=== PATIENT | female | born 1945 | race Caucasian/White ===

== ENCOUNTER 2018-01-29 18:14 | Observation (INO) | payer MEDICARE ==
[~2018-01-29] VITALS: Ht 162.6 cm; Wt 85.2 kg
[2018-01-29 18:57] LABS: CULTURE INDICATED? NO; MICROSCOPIC NOT IND
[2018-01-29] MEDS ORDERED: SODIUM CHLORIDE 0.9% 1,000 ML IV ONE ×2 (19:20→21:03)
[2018-01-29] MEDS ORDERED: ONDANSETRON ODT 4 MG ONE (19:26)
[2018-01-29 19:29] LABS: BASOPHILS # (AUTO) 0.03 x10^3/uL (0-0.1); BASOPHILS % (AUTO) 0 % (0-1); EOSINOPHILS # (AUTO) 0.12 x10^3/uL (0-0.4); EOSINOPHILS % (AUTO) 1 % (1-7); LYMPHOCYTES % (AUTO) 16 % (22-44); MD NO; MEAN CORPUSCULAR HEMOGLOBIN 30.1 pg (27.0-34.8); MEAN CORPUSCULAR HGB CONC 33.7 g/dL (32.4-35.8); MEAN CORPUSCULAR VOLUME 89.5 fL (80-100); MEAN PLATELET VOLUME 8.5 fL (7.4-10.4); MONOCYTES # (AUTO) 0.76 x10^3/uL (0.2-0.8); MONOCYTES % (AUTO) 7 % (2-9); NEUTROPHILS # (AUTO) 8.22 x10^3/uL (1.8-6.8); NEUTROPHILS % (AUTO) 76 % (42-75); PLATELET COUNT 230 x10^3/uL (130-400); RED BLOOD COUNT 4.96 x10^6/uL (3.82-5.3); RED CELL DISTRIBUTION WIDTH 14.2 % (9.6-15.2)
[2018-01-29] MEDS ORDERED: SODIUM CHLORIDE FLUSH 10ML SYR IVF ONE (19:30)
[2018-01-29] MEDS ORDERED: ONDANSETRON ODT 4 MG PO ONE (19:30)
[2018-01-29 19:37] LABS: ANION GAP 7 mmol/L (5-15); CALCIUM 9.4 mg/dL (8.5-10.1); CHLORIDE 107 mmol/L (98-107); CREATININE 0.96 mg/dL (0.55-1.02)
[2018-01-29 19:38] LABS: ALANINE AMINOTRANSFERASE 61 U/L (12-78); ALBUMIN 3.4 g/dL (3.4-5.0)
[2018-01-29 19:39] LABS: ALKALINE PHOSPHATASE 136 U/L (45-117); BILIRUBIN,TOTAL 0.4 mg/dL (0.2-1.0); TOTAL PROTEIN 7.8 g/dL (6.4-8.2)
[2018-01-29] MEDS ORDERED: OMNIPAQUE 350 MG/ML, 100ML BOTTLE ONE (20:19)
[2018-01-29] MEDS ORDERED: CEFOTETAN PMX 1GM/50ML 50 ML ONE (20:57)
[2018-01-29] MEDS ORDERED: BUPIVACAINE/PF-EPI 0.5% 1:200K ONE (21:00)
[2018-01-29] MEDS ORDERED: CEFOTETAN PMX 1GM/50ML 50 ML IV ONE (21:00)
[2018-01-29] MEDS ORDERED: CEFTRIAXONE 1,000 MG in SODIUM CHLORIDE 0.9% 50 ML IV ONE (21:07)
[2018-01-29] MEDS ORDERED: FENTANYL PF 100 MCG/2ML ONE ×3 (21:25→22:38)
[2018-01-29] MEDS ORDERED: MIDAZOLAM 1 MG/ML, 2ML ONE (21:25)
[2018-01-29] MEDS ORDERED: PROPOFOL 10 MG/ML, 20ML ONE (21:28)
[2018-01-29] MEDS ORDERED: ROCURONIUM 10MG/ML,5ML ONE (21:28)
[2018-01-29] MEDS ORDERED: SODIUM CHLORIDE FLUSH 10ML SYR IVF PRN (21:30)
[2018-01-29] MEDS ORDERED: GLYCOPYRROLATE 0.4 MG/2 ML, 2ML ONE ×2 (21:31→22:07)
[2018-01-29] MEDS ORDERED: NEOSTIGMINE 1 MG/ML, 10ML ONE (21:31)
[2018-01-29] MEDS ORDERED: ONDANSETRON 2MG/ML, 2ML ONE (21:42)
[2018-01-29] MEDS ORDERED: BUPIVACAINE/PF-EPI 0.5% 1:200K IM ONE (21:54)
[2018-01-29] MEDS ORDERED: DEXAMETHASONE 4 MG/ML, 1ML ONE ×2 (21:58)
[2018-01-29] MEDS ORDERED: ONDANSETRON ODT 8 MG PO PRN (22:00)
[2018-01-29] MEDS ORDERED: OXYcodone 5 MG/5 ML ORAL.SOL UDC PO PRN (22:00)
[2018-01-29] MEDS ORDERED: MORPHINE SULFATE 4 MG/ML, 1ML IVPush PRN (22:00)
[2018-01-29] MEDS ORDERED: ONDANSETRON 2MG/ML, 2ML IV PRN (22:00)
[2018-01-29] MEDS ORDERED: FENTANYL PF 100 MCG/2ML IV PRN (22:00)
[2018-01-29] MEDS ORDERED: MEPERIDINE/PF 25MG/0.5ML IVPush PRN (22:00)
[2018-01-29] MEDS ORDERED: LABETALOL 5MG/ML, 20ML IV PRN (22:00)
[2018-01-29] MEDS ORDERED: PROCHLORPERAZINE 5 MG/ML, 2ML IV PRN ×3 (22:00)
[2018-01-29] MEDS ORDERED: hydrALAzine 20 MG/ML, 1ML IV PRN (22:00)
[2018-01-29] MEDS ORDERED: HYDROmorphone 1 MG/ML, 1ML IV PRN (22:00)
[2018-01-29] MEDS ORDERED: OXYcodone 5 MG/5 ML ORAL.SOL UDC ONE (22:38)
[2018-01-29] MEDS ORDERED: hydrALAzine 20 MG/ML, 1ML ONE (22:43)
[2018-01-29] MEDS ORDERED: ACETAMINOPHEN 325 MG TABLET PO PRN (23:30)
[2018-01-29] MEDS ORDERED: IBUPROFEN 600 MG TABLET PO PRN (23:30)
[2018-01-29] MEDS ORDERED: OXYcodone/APAP 5/325MG TABLET PO PRN (23:30)
[2018-01-29] MEDS ORDERED: DIPHENHYDRAMINE 25 MG CAPSULE PO PRN (23:30)
[2018-01-29] MEDS ORDERED: OXYC-302 PO (23:41)
[2018-01-29] MEDS ORDERED: POLY17PO5 PO (23:42)
[2018-01-30 03:50] VITALS: BP 128/77
[2018-01-30 08:00] VITALS: BP 157/76
[2018-01-30 12:35] VITALS: BP 157/76
== END 2018-01-30 13:08 | disposition home or self-care (01) ==
LOC: ED 20:20 → INTOOBSV 21:03 → EDIP 21:03 → 4NOR 23:12 → DCLOUNGE 01-30 12:52
PROVIDERS: ADMIT Colon & Rectal Surgery; ATTEND Colon & Rectal Surgery
DX: K80.00 Calculus of gallbladder with acute cholecystitis without obstruction (principal); E78.5 Hyperlipidemia, unspecified; E78.00 Pure hypercholesterolemia, unspecified; E66.9 Obesity, unspecified; Z90.710 Acquired absence of both cervix and uterus
CPT/HCPCS: 36415; 47562; 74022; 74177; 80053; 81003; 83690; 85025; 88304; 96365; 99285; G0378; J0360; J1100; J2250; J2405; J2704; J2710; J3010; J7030; Q0162; Q9967; S0074

== ENCOUNTER → 2019-06-29 | Outpatient (CLI) | payer MEDICARE ==
[~2019-06-29] MED LIST: AMINOPHYLLINE 25 MG/ML, 10ML ONE; OXYC-302 PO; POLY17PO5 PO; REGADENOSON 0.4 MG/5 ML SYRINGE ONE
== END | disposition home or self-care (01) ==
LOC: CFH 08:01
PROVIDERS: ATTEND Internal Medicine
DX: I25.9 Chronic ischemic heart disease, unspecified (principal); E11.65 Type 2 diabetes mellitus with hyperglycemia; E78.5 Hyperlipidemia, unspecified; R07.9 Chest pain, unspecified
CPT/HCPCS: 78452; 93017; A9502; J0280; J2785

== ENCOUNTER 2019-07-19 09:19 | Outpatient (CLI) | payer MEDICARE ==
[~2019-07-19 09:19] MED LIST changes: -AMINOPHYLLINE 25 MG/ML, 10ML ONE; -REGADENOSON 0.4 MG/5 ML SYRINGE ONE
[2019-07-19] MEDS ORDERED: OMEP40CA42 PO (09:48)
[2019-07-19] MEDS ORDERED: ATOR20TA37 PO (09:48)
[2019-07-19] MEDS ORDERED: LISI-167 PO (09:48)
[2019-07-19] MEDS ORDERED: METF500T17 PO (09:48)
[2019-07-19] MEDS ORDERED: MULT-658 PO (09:56)
[2019-07-19] MEDS ORDERED: UBID1CAP43 PO (09:56)
== END 2019-07-19 23:59 | disposition home or self-care (01) ==
LOC: STAR 09:19
PROVIDERS: ATTEND Internal Medicine Cardiovascular Disease
DX: Z02.9 Encounter for administrative examinations, unspecified (principal)

== ENCOUNTER 2019-07-22 07:44 | Inpatient (IN) | payer MEDICARE ==
[2019-07-19 10:20] LABS: BASOPHILS # (AUTO) 0.03 x10^3/uL (0-0.1); BASOPHILS % (AUTO) 1 % (0-1); EOSINOPHILS # (AUTO) 0.17 x10^3/uL (0-0.4); EOSINOPHILS % (AUTO) 3 % (1-7); LYMPHOCYTES # (AUTO) 1.74 x10^3/uL (1-3.4); LYMPHOCYTES % (AUTO) 26 % (22-44); MD NO; MEAN CORPUSCULAR HEMOGLOBIN 29.6 pg (27.0-34.8); MEAN CORPUSCULAR HGB CONC 32.5 g/dL (32.4-35.8); MEAN CORPUSCULAR VOLUME 91.2 fL (80-100); MONOCYTES # (AUTO) 0.58 x10^3/uL (0.2-0.8); MONOCYTES % (AUTO) 9 % (2-9); NEUTROPHILS % (AUTO) 63 % (42-75); PLATELET COUNT 223 x10^3/uL (130-400); RED BLOOD COUNT 4.82 x10^6/uL (3.82-5.3); RED CELL DISTRIBUTION WIDTH 14.9 % (9.6-15.2)
[2019-07-19 10:30] LABS: ANION GAP 6 mmol/L (5-15); CALCIUM 9.1 mg/dL (8.5-10.1); CHLORIDE 108 mmol/L (98-107); CREATININE 0.98 mg/dL (0.55-1.02)
[~2019-07-22] VITALS: Ht 160 cm; Wt 82.9 kg
[~2019-07-22 07:44] MED LIST changes: +ATOR20TA37 PO; +LISI-167 PO; +METF500T17 PO; +MULT-658 PO; +OMEP40CA42 PO; +UBID1CAP43 PO
[2019-07-22] MEDS ORDERED: HEPARIN 1,000 UNITS/ML, 10ML ONE (08:58)
[2019-07-22] MEDS ORDERED: LIDOCAINE 2%, 20ML ONE (08:58)
[2019-07-22] MEDS ORDERED: BIVALIRUDIN 250 MG ONE ×2 (08:58→10:13)
[2019-07-22] MEDS ORDERED: MIDAZOLAM 1 MG/ML, 5ML ONE (08:58)
[2019-07-22] MEDS ORDERED: FENTANYL PF 100 MCG/2ML ONE ×2 (08:58→10:51)
[2019-07-22] MEDS ORDERED: TICAGRELOR 90 MG TABLET ONE (08:58)
[2019-07-22] MEDS ORDERED: VERAPAMIL 2.5 MG/ML, 2ML ONE (08:58)
[2019-07-22] MEDS ORDERED: ONDANSETRON 2MG/ML, 2ML ONE (10:51)
[2019-07-22] MEDS ORDERED: MIDAZOLAM 1 MG/ML, 2ML ONE (10:51)
[2019-07-22] MEDS ORDERED: PRASUGREL 10 MG TABLET ONE (11:28)
[2019-07-22] MEDS ORDERED: BIVALIRUDIN 250 MG in SODIUM CHLORIDE 0.9% 50 ML IV SCH (11:38)
[2019-07-22] MEDS ORDERED: ZOLPIDEM 5MG TABLET PO PRN (12:00)
[2019-07-22] MEDS ORDERED: ACETAMINOPHEN 325 MG TABLET PO PRN (12:00)
[2019-07-22] MEDS ORDERED: ONDANSETRON 2MG/ML, 2ML IVPush PRN (12:00)
[2019-07-22] MEDS: SODIUM CHLORIDE 0.9% 1,000 ML IV SCH ×2 (12:06→19:38)
[2019-07-22 14:30] VITALS: BP 126/80
[2019-07-22 20:00] VITALS: BP 131/73
[2019-07-22] MEDS: VITAMIN E 400 UNITS CAPSULE PO SCH (20:12)
[2019-07-22] MEDS: ATORVASTATIN 20 MG TABLET PO SCH (20:12)
[2019-07-23 01:31] VITALS: BP 137/70
[2019-07-23] MEDS: SODIUM CHLORIDE 0.9% 1,000 ML IV SCH ×2 (03:38→08:44)
[2019-07-23 05:15] LABS: ANION GAP 6 mmol/L (5-15); CALCIUM 8.8 mg/dL (8.5-10.1); CHLORIDE 110 mmol/L (98-107)
[2019-07-23 05:21] LABS: CREATININE 0.69 mg/dL (0.55-1.02)
[2019-07-23 08:43] VITALS: BP 119/72
[2019-07-23] MEDS: metFORMIN 500 MG TABLET PO SCH (08:44)
[2019-07-23] MEDS: OMEPRAZOLE 20 MG CAPSULE.DR PO SCH (08:46)
[2019-07-23] MEDS: LISINOPRIL 10 MG TABLET PO SCH (08:46)
[2019-07-23] MEDS: PRASUGREL 10 MG TABLET PO SCH (08:46)
[2019-07-23] MEDS: MULTIVITAMIN 1 TABLET PO SCH (08:46)
[2019-07-23] MEDS: VITAMIN E 400 UNITS CAPSULE PO SCH ×2 (08:47→21:28)
[2019-07-23] MEDS: ASPIRIN 81 MG TABLET EC PO SCH (09:49)
[2019-07-23] MEDS ORDERED: DIPHENHYDRAMINE 50 MG/ML, 1ML IVPush PRN (11:30)
[2019-07-23 13:45] VITALS: BP 116/75
[2019-07-23 17:54] VITALS: BP 108/68
[2019-07-23] MEDS: METOPROLOL TARTRATE 25 MG TAB PO SCH (17:55)
[2019-07-23 20:25] VITALS: BP 108/66
[2019-07-23] MEDS: ATORVASTATIN 20 MG TABLET PO SCH (21:28)
[2019-07-24 01:17] VITALS: BP 102/66
[2019-07-24] MEDS: METOPROLOL TARTRATE 25 MG TAB PO SCH (05:59)
[2019-07-24] MEDS: ASPIRIN 81 MG TABLET EC PO SCH (05:59)
[2019-07-24 08:18] VITALS: BP 114/65
[2019-07-24] MEDS: LISINOPRIL 10 MG TABLET PO SCH (08:20)
[2019-07-24] MEDS: PRASUGREL 10 MG TABLET PO SCH (08:21)
[2019-07-24] MEDS: OMEPRAZOLE 20 MG CAPSULE.DR PO SCH (08:21)
[2019-07-24] MEDS: metFORMIN 500 MG TABLET PO SCH (08:21)
[2019-07-24] MEDS: MULTIVITAMIN 1 TABLET PO SCH (08:21)
[2019-07-24] MEDS: VITAMIN E 400 UNITS CAPSULE PO SCH (08:22)
[2019-07-24] MEDS ORDERED: ATOR40TA PO (10:01)
[2019-07-24] MEDS ORDERED: PRAS10TA4 PO (10:01)
[2019-07-24] MEDS ORDERED: METO25TA2 PO (10:01)
[2019-07-24] MEDS ORDERED: ASPI81TA45 PO (10:01)
== END 2019-07-24 11:25 | disposition home or self-care (01) | DRG 246 ==
LOC: CACL 07:44 → OBSVTOIN 11:38 → 5SO 11:38 → CACL 12:42 → DCLOUNGE 07-24 11:15
PROVIDERS: ADMIT Internal Medicine Cardiovascular Disease; ATTEND Internal Medicine Cardiovascular Disease
PROC: 4A023N7 Measurement of Cardiac Sampling and Pressure, Left Heart, Percutaneous Approach (ICD-10-PCS; principal; 2019-07-22)
PROC: 027236Z Dilation of Coronary Artery, Three Arteries with Three Drug-eluting Intraluminal Devices, Percutaneous Approach (ICD-10-PCS; 2019-07-22)
PROC: B2151ZZ Fluoroscopy of Left Heart using Low Osmolar Contrast (ICD-10-PCS; 2019-07-22)
PROC: B2111ZZ Fluoroscopy of Multiple Coronary Arteries using Low Osmolar Contrast (ICD-10-PCS; 2019-07-22)
PROC: 02703ZZ Dilation of Coronary Artery, One Artery, Percutaneous Approach (ICD-10-PCS; 2019-07-22)
DX: I25.10 Atherosclerotic heart disease of native coronary artery without angina pectoris (principal); I50.33 Acute on chronic diastolic (congestive) heart failure; E78.5 Hyperlipidemia, unspecified; I27.20 Pulmonary hypertension, unspecified; K21.9 Gastro-esophageal reflux disease without esophagitis; I45.9 Conduction disorder, unspecified; E11.9 Type 2 diabetes mellitus without complications; I11.9 Hypertensive heart disease without heart failure; Z87.891 Personal history of nicotine dependence; Z82.49 Family history of ischemic heart disease and other diseases of the circulatory system; I11.0 Hypertensive heart disease with heart failure
CPT/HCPCS: 36415; 80048; 84484; 85025; 92920; 93005; 93306; 93458; 99156; 99157; C1769; C1894; C9600; C9601; G0378; J0583; J1644; J2250; J2405; J3010; C1725; C1874; C1887; J1200; J7030; Q9967

== ENCOUNTER → 2019-12-09 | Outpatient (CLI) | payer MEDICARE ==
[~2019-12-09] MED LIST changes: +ASPI81TA45 PO; +ATOR40TA PO; +METO25TA2 PO; +PRAS10TA4 PO; +REGADENOSON 0.4 MG/5 ML SYRINGE ONE
== END | disposition home or self-care (01) ==
LOC: CFH 07:44
PROVIDERS: ATTEND Nurse Practitioner Family
DX: I25.9 Chronic ischemic heart disease, unspecified (principal); R07.9 Chest pain, unspecified
CPT/HCPCS: 78452; 93017; A9502; J2785

== ENCOUNTER → 2019-12-13 | Outpatient (CLI) | payer MEDICARE ==
[~2019-12-13] MED LIST changes: -REGADENOSON 0.4 MG/5 ML SYRINGE ONE
== END | disposition home or self-care (01) ==
LOC: CFH 11:11
PROVIDERS: ATTEND Internal Medicine
DX: Z12.31 Encounter for screening mammogram for malignant neoplasm of breast (principal); Z13.820 Encounter for screening for osteoporosis; N95.8 Other specified menopausal and perimenopausal disorders; M85.80 Other specified disorders of bone density and structure, unspecified site
CPT/HCPCS: 77063; 77067; 77080